=== PATIENT | female | born 1960 | race Two or more races ===

== ENCOUNTER 2022-02-24 13:45 | Inpatient (IN) | payer OTHER ==
[~2022-02-24] VITALS: Ht 162.6 cm; Wt 104.3 kg
[2022-02-24] MEDS ORDERED: SIMVASTATIN5 MG PO (13:49)
[2022-02-24] MEDS ORDERED: HUMULIN 70100 UNIT/2 (13:49)
== END 2022-02-27 20:32 | DRG 482 ==
LOC: ER 13:45 → MEDI 20:34
PROVIDERS: Orthopaedic Surgery; ADMIT Internal Medicine; ATTEND Internal Medicine
PROC: 0QSB06Z Reposition Right Lower Femur with Intramedullary Internal Fixation Device, Open Approach (ICD-10-PCS; principal; 2022-02-25 13:00)
DX: S72.451A Displaced supracondylar fracture without intracondylar extension of lower end of right femur, initial encounter for closed fracture (principal); W19.XXXA Unspecified fall, initial encounter; Y93.23 Activity, snow (alpine) (downhill) skiing, snowboarding, sledding, tobogganing and snow tubing; Y99.9 Unspecified external cause status; Y92.010 Kitchen of single-family (private) house as the place of occurrence of the external cause; E11.319 Type 2 diabetes mellitus with unspecified diabetic retinopathy without macular edema; I10 Essential (primary) hypertension; Z79.4 Long term (current) use of insulin; N18.9 Chronic kidney disease, unspecified; D51.3 Other dietary vitamin B12 deficiency anemia; Z53.29 Procedure and treatment not carried out because of patient's decision for other reasons; E66.9 Obesity, unspecified; Z68.39 Body mass index [BMI] 39.0-39.9, adult; Z20.822 Contact with and (suspected) exposure to COVID-19